=== PATIENT | female | born 2005 | race Two or more races ===

== ENCOUNTER 2024-07-28 09:00 | Day surgery (SDC) | payer BC, MEDICAID, SELFPAY ==
[2024-07-24 11:57] VITALS: BMI 25.0
[2024-07-24 13:36] LABS: HCG Qualitative,Urine Negative
[2024-07-24 13:41] LABS: Partial Thromboplastin Time 28.1 Seconds (22.0-36.0); Prothrombin Time 11.2 Seconds (9.0-12.2)
[2024-07-24 13:43] LABS: Basophils % (Auto) 0 % (0-2.5); Eosinophils # (Auto) 0.1 Thou/mm3 (0.0-0.5); Eosinophils % (Auto) 1 % (0-10); Hematocrit 36.9 % (36.0-46.0); Hemoglobin 12.1 g/dL (12.0-16.0); Immature Granulocytes % (Auto) 0 % (0-0); Immature Granulocytes Auto 0.03 Thou/mm3 (0.00-0.00); Lymphocytes # (Auto) 2.1 Thou/mm3 (1.0-5.0); Lymphocytes % (Auto) 22 % (10-50); Mean Corpuscular HGB Conc 32.8 g/dl (31.0-37.0); Mean Corpuscular Hemoglobin 27.6 pg (25.0-35.0); Mean Corpuscular Volume 84 fL (80-100); Monocytes # (Auto) 0.6 Thou/mm3 (0.0-0.8); Monocytes % (Auto) 7 % (0-12); Neutrophils # (Auto) 6.5 Thou/mm3 (1.8-7.7); Neutrophils % (Auto) 69 % (37-80); Nucleated Red Blood Cell % 0 /100 WBC (0); Platelet Count 319 Thou/mm3 (140-440); RDW Standard Deviation 41.3 fL (36.4-46.3); Red Blood Count 4.38 Miln/mm3 (4.00-5.20); White Blood Count 9.3 Thou/mm3 (4.5-11.0)
[2024-07-24 14:37] LABS: Alanine Aminotransferase 14 U/L (10-49); Albumin, Serum 4.9 gm/dL (3.5-5.0); Albumin/Globulin Ratio 1.7 (1.2-2.2); Alkaline Phosphatase 102 U/L (46-116); Anion Gap 5 (7-16); Aspartate Amino Transferase 19 U/L (0-34); BUN/Creatinine Ratio 13 Ratio (12-20); Bilirubin,Total 0.3 mg/dL (0.3-1.2); Blood Urea Nitrogen 9 mg/dL (9-23); Calcium 10.1 mg/dL (8.3-10.6); Calcium (Corrected) 10.1 mg/dL (8.5-10.1); Carbon Dioxide 25.9 mMol/L (20.0-31.0); Chloride 108 mMol/L (98-107); Creatinine (Component) 0.7 mg/dL (0.6-1.3); Globulin 2.9 gm/dL (2.3-3.5); Glucose 102 mg/dL (74-106); Osmolality,Calculated 276 (275-295); Sodium 139 mMol/L (136-145); Total Protein 7.8 gm/dL (5.7-8.2); eGFR > 60 See Note
[2024-07-28] VITALS (8 sets, daily range): BP systolic 109–130; BP diastolic 59–77; PULSE 85–105; RESP 12–16; TEMP 36.3–36.9; O2SAT 95–98; BMI 25.5
[2024-07-28] MEDS: RINGERS LACTATED 500 ML 500 ML 20 ML IV (09:38)
--- NOTE | 2024-07-28 11:55 | SUR.PHASEI ---
7637 Patient arrived to recovery resting comfortably in [facility], drowsy and able to arouse with verbal prompting, breathing unlabored, vital signs stable, denies pain, dressing intact to left axilla; sutures, adaptic, fluffs, foam tape, no bleeding noted, lung sounds clear upon auscultation, bilateral radial pulses present when palpated, report received from Dr. Alanis and Carmen CACERES
--- NOTE | 2024-07-28 12:17 | ESOP_ITS ---
Date of Procedure 07/28/24 Pre Op Diagnosis Large lipoma left axilla Post Op Diagnosis Same Procedure Excision of the large lipoma left axilla Findings Patient was found to have a mass in the left axilla at least 5 cm in diameter and was giving him some discomfort and therefore excision was indicated. Procedure Description Of the patient was brought to the operating room LMA anesthesia was given. Then her left axilla was washed with ChloraPrep solution draped in a sterile manner. Timeout was performed. The remaining elliptical incision over the mass after injecting half percent Marcaine. The excision was carried out on the large mild lipomatous tissue was removed along with a portion of the skin. Bleeding points were controlled with cautery and some of them were suture-ligated with a 3-0 chromic. I closed the subcutaneous tissue with interrupted 3-0 chromic and the skin with interrupted 4-0 nylon stitches. Dressing was applied with Adaptic and fluff and compression with gauze. Patient tolerated the procedure well and left operating room in stable condition. Anesthesia other Pathology / specimen Other (The mass left axilla) Estimated Blood Loss 50 Surgeon Scott Sawant MD Surgical Staff Operation Date: 07/28/24 11:15 Case Staff Anesthesiologist: Prasanth Alanis RNassistant fitness manager: Reva Coy
--- NOTE | 2024-07-28 13:05 | SUR.PHASEII ---
1305 Patient meets discharge criteria from recovery, awake and alert, breathing unlabored, vital signs stable, denies pain, dressing intact; no bleeding noted, patient ate a jello and drinking apple juice; tolerating well, patient assisted with dressing into her clothing by her mother, discharge instructions given to patient father and patient, father signed discharge instructions. Patient given all her belongings prior to discharge, transported via wheelchair and left in a private vehicle.
== END 2024-07-28 13:05 | disposition home or self-care (01) ==
PROVIDERS: Anesthesiology; PCP Family Medicine; Referring Provider Surgery; Visit Provider Surgery
PROC: (CPT 21933; principal; 2024-07-28 11:00)
DX: D17.22 Benign lipomatous neoplasm of skin and subcutaneous tissue of left arm (principal)
CPT/HCPCS: 21933; 36415; 80053; 81025; 85025; 85610; 85730; A4649; J1100; J1885; J2704; J2765; J3010; J3490; J7120